=== PATIENT | male | born 1990 | race Caucasian/White ===

== ENCOUNTER 2017-11-11 21:59 | Inpatient (IN) | payer MEDICAID ==
[~2017-11-11] VITALS: Ht 170.2 cm; Wt 130.3 kg
[~2017-11-11 21:59] MED LIST: CYCL-1 PO
[2017-11-11] MEDS ORDERED: normal saline 1000ML IV soln IV ONE (22:30)
[2017-11-11] MEDS ORDERED: pantoprazole IV 80 MG in normal saline 100ml IV soln 100 ML IV ONE (22:30)
[2017-11-11 22:49] LABS: BASOPHILS # (AUTO) 0.1 X10'3 (0-0.2); BASOPHILS % (AUTO) 0.7 % (0-1); EOSINOPHILS # (AUTO) 0.2 X10'3 (0-0.9); EOSINOPHILS % (AUTO) 1.7 % (0-6); HEMATOCRIT 40.5 % (42.0-52.0); LYMPHOCYTES # (AUTO) 3.8 X10'3 (1.1-4.8); LYMPHOCYTES % (AUTO) 32.8 % (21-51); MEAN CORPUSCULAR HEMOGLOBIN 28.6 PG (27.0-31.0); MEAN CORPUSCULAR HGB CONC 34.4 % (33.0-36.5); MEAN PLATELET VOLUME 7.3 FL (7.4-10.4); MONOCYTES # (AUTO) 0.7 X10'3 (0-0.9); MONOCYTES % (AUTO) 6.3 % (2-12); NEUTROPHILS # (AUTO) 6.8 X10'3 (1.8-7.7); NEUTROPHILS % (AUTO) 58.5 % (42-75); PLATELET COUNT 370 X10'3 (140-440); RED BLOOD COUNT 4.88 X10'6 (4.70-6.10); RED CELL DISTRIBUTION WIDTH 13.1 % (11.5-14.5); WHITE BLOOD COUNT 11.6 X10'3 (4.5-11.0)
[2017-11-11] MEDS ORDERED: PANTOPRAZOLE IV ONE (22:50)
[2017-11-11] MEDS ORDERED: [UNRECOGNIZED DRUG - OTHER] IV ONE (22:50)
[2017-11-11 22:58] LABS: PARTIAL THROMBOPLASTIN TIME 27 SECONDS (22-32); PROTHROMBIN TIME 10.5 SECONDS (9.0-12.0)
[2017-11-11 23:11] LABS: CLARITY,URINE CLEAR (Clear); COLOR,URINE YELLOW (Yellow); GLUCOSE, URINE NEGATIVE (Neg); KETONES,URINE NEGATIVE (Neg); LEUKOCYTE ESTERASE ,URINE NEGATIVE (Neg); NITRITES, URINE NEGATIVE (Neg); OCCULT BLOOD,URINE NEGATIVE (Neg); PROTEIN,URINE NEGATIVE (Neg); UROBILINOGEN,URINE 0.2 E.U/dL (0.2-1.0)
[2017-11-11 23:13] LABS: UA COLLECTION TYPE URINAL
[2017-11-11 23:14] LABS: ALANINE AMINOTRANSFERASE 50 U/L (12-78); ALBUMIN 3.9 G/DL (3.4-5.0); ALBUMIN/GLOBULIN RATIO 1.1 (1.1-1.5); ALKALINE PHOSPHATASE 65 IU/L (46-116); ANION GAP 10 (8-16); ASPARTATE AMINO TRANSFERASE 26 U/L (10-37); BILIRUBIN,TOTAL 0.4 MG/DL (0.1-1.0); BLOOD UREA NITROGEN 13 MG/DL (7-18); BUN/CREATININE RATIO 15.1 (5.4-32.0); CALCIUM 9.2 MG/DL (8.5-10.1); CHLORIDE 104 MMOL/L (99-107); CREATININE 0.86 MG/DL (0.60-1.10); GLUCOSE 105 MG/DL (70-104); POTASSIUM 3.9 MMOL/L (3.5-5.1); SODIUM 142 MMOL/L (135-145); TOTAL CARBON DIOXIDE 28.4 MMOL/L (24-32); TOTAL PROTEIN 7.5 G/DL (6.4-8.2); eGFR > 90 ML/MIN
[2017-11-11] MEDS ORDERED: magnesium hydroxide 30ml (MOM) UD suspension PO PRN (23:50)
[2017-11-11] MEDS ORDERED: potassium Cl 20 mEq SR tablet PO PRN ×2 (23:50)
[2017-11-11] MEDS ORDERED: HYDROmorphone 1 mg/ml syringe IV PRN ×2 (23:50)
[2017-11-11] MEDS ORDERED: magnesium Cl slow-release 64mg tablet PO PRN (23:50)
[2017-11-11] MEDS ORDERED: acetaminophen 325mg tablet PO PRN (23:50)
[2017-11-11] MEDS ORDERED: mag hydrox/Alum hydrox/simeth 30ml oral suspension PO PRN (23:50)
[2017-11-11] MEDS ORDERED: magnesium 2GM in 50ml NS 50 ML IV PRN (23:50)
[2017-11-11] MEDS ORDERED: potassium Cl 40MEQ/NS 500ml 500 ML IV PRN ×2 (23:50)
[2017-11-11] MEDS ORDERED: magnesium 4gm in 100ml NS 100 ML IV PRN (23:50)
[2017-11-12] VITALS (14 sets, daily range): BP systolic 116–148; BP diastolic 62–89
[2017-11-12] MEDS ORDERED: HYDROmorphone inj. 0.5 MG/0.5 ML DISP.SYRIN ONE ×2 (00:06→15:36)
[2017-11-12] MEDS: ondansetron/PF 4mg/2ml inj IV PRN ×3 (00:09→23:22)
[2017-11-12] MEDS: pantoprazole 40MG/NS 100ML BAG 100 ML IV SCH ×5 (00:17→20:56)
[2017-11-12] MEDS: normal saline 1000ml 1,000 ML IV SCH ×4 (00:17→22:57)
[2017-11-12 03:42] LABS: BASOPHILS % (AUTO) 0.3 % (0-1); EOSINOPHILS # (AUTO) 0.3 X10'3 (0-0.9); EOSINOPHILS % (AUTO) 2.5 % (0-6); HEMATOCRIT 36.2 % (42.0-52.0); HEMOGLOBIN 12.6 g/dl (14.0-17.9); LYMPHOCYTES # (AUTO) 4.5 X10'3 (1.1-4.8); LYMPHOCYTES % (AUTO) 39.2 % (21-51); MEAN CORPUSCULAR HGB CONC 34.7 % (33.0-36.5); MEAN CORPUSCULAR VOLUME 83.6 FL (78-98); MEAN PLATELET VOLUME 7.3 FL (7.4-10.4); MONOCYTES # (AUTO) 0.8 X10'3 (0-0.9); MONOCYTES % (AUTO) 7.3 % (2-12); NEUTROPHILS # (AUTO) 5.8 X10'3 (1.8-7.7); NEUTROPHILS % (AUTO) 50.7 % (42-75); PLATELET COUNT 329 X10'3 (140-440); RED BLOOD COUNT 4.32 X10'6 (4.70-6.10); RED CELL DISTRIBUTION WIDTH 13.5 % (11.5-14.5); WHITE BLOOD COUNT 11.4 X10'3 (4.5-11.0)
[2017-11-12 04:00] LABS: ALANINE AMINOTRANSFERASE 42 U/L (12-78); ALBUMIN 3.3 G/DL (3.4-5.0); ALBUMIN/GLOBULIN RATIO 1.1 (1.1-1.5); ALKALINE PHOSPHATASE 56 IU/L (46-116); ANION GAP 8 (8-16); ASPARTATE AMINO TRANSFERASE 21 U/L (10-37); BILIRUBIN,TOTAL 0.4 MG/DL (0.1-1.0); BLOOD UREA NITROGEN 12 MG/DL (7-18); CALCIUM 8.5 MG/DL (8.5-10.1); CHLORIDE 108 MMOL/L (99-107); CREATININE 0.86 MG/DL (0.60-1.10); GLUCOSE 113 MG/DL (70-104); MAGNESIUM 1.7 MG/DL (1.5-2.4); POTASSIUM 4.1 MMOL/L (3.5-5.1); SODIUM 143 MMOL/L (135-145); TOTAL CARBON DIOXIDE 27.1 MMOL/L (24-32); TOTAL PROTEIN 6.4 G/DL (6.4-8.2); eGFR > 90 ML/MIN
[2017-11-12 07:15] LABS: OCCULT BLOOD STOOL POSITIVE (Neg)
[2017-11-12] MEDS: K and/or MAG REPLACEMENT MC SCH (08:00)
[2017-11-12] MEDS ORDERED: normal saline 1000ml 1,000 ML IV SCH (13:11)
[2017-11-12] MEDS ORDERED: fentaNYL/PF 50MCG/1 ML 2ML syringe IV PRN (13:15)
[2017-11-12] MEDS ORDERED: MIDAZolam 5mg/ml 2ml vial IV PRN (13:15)
[2017-11-12] MEDS ORDERED: LIDOcaine Viscous 15ml cup PO ONE (13:15)
[2017-11-12] MEDS ORDERED: MIDAZolam 5mg/ml 2ml vial ONE (13:54)
[2017-11-12] MEDS ORDERED: LIDOcaine Viscous 15ml cup ONE (13:54)
[2017-11-12] MEDS ORDERED: fentaNYL/PF 50MCG/1 ML 2ML syringe ONE (13:54)
[2017-11-12] MEDS ORDERED: ondansetron/PF 4mg/2ml inj ONE (14:22)
[2017-11-12] MEDS ORDERED: PEG 3350/Na sulf,bicarb,Cl/KCl oral sol 4 liter bottle PO ONE (21:00)
[2017-11-13] VITALS (14 sets, daily range): BP systolic 118–144; BP diastolic 58–86
[2017-11-13] MEDS: pantoprazole 40MG/NS 100ML BAG 100 ML IV SCH ×2 (01:24→06:26)
[2017-11-13] MEDS: K and/or MAG REPLACEMENT MC SCH (06:29)
[2017-11-13 07:00] LABS: BASOPHILS % (AUTO) 0.4 % (0-1); EOSINOPHILS # (AUTO) 0.3 X10'3 (0-0.9); EOSINOPHILS % (AUTO) 2.5 % (0-6); HEMATOCRIT 35.9 % (42.0-52.0); HEMOGLOBIN 12.6 g/dl (14.0-17.9); LYMPHOCYTES # (AUTO) 3.7 X10'3 (1.1-4.8); LYMPHOCYTES % (AUTO) 33.3 % (21-51); MEAN CORPUSCULAR HEMOGLOBIN 29.1 PG (27.0-31.0); MEAN CORPUSCULAR HGB CONC 34.9 % (33.0-36.5); MEAN CORPUSCULAR VOLUME 83.5 FL (78-98); MEAN PLATELET VOLUME 7.4 FL (7.4-10.4); MONOCYTES # (AUTO) 0.7 X10'3 (0-0.9); MONOCYTES % (AUTO) 6.5 % (2-12); NEUTROPHILS # (AUTO) 6.3 X10'3 (1.8-7.7); NEUTROPHILS % (AUTO) 57.3 % (42-75); PLATELET COUNT 324 X10'3 (140-440); RED BLOOD COUNT 4.31 X10'6 (4.70-6.10); RED CELL DISTRIBUTION WIDTH 13.4 % (11.5-14.5)
[2017-11-13 07:11] LABS: ALANINE AMINOTRANSFERASE 44 U/L (12-78); ALBUMIN 3.4 G/DL (3.4-5.0); ALBUMIN/GLOBULIN RATIO 1.1 (1.1-1.5); ALKALINE PHOSPHATASE 55 IU/L (46-116); ANION GAP 8 (8-16); ASPARTATE AMINO TRANSFERASE 24 U/L (10-37); BILIRUBIN,TOTAL 0.7 MG/DL (0.1-1.0); BLOOD UREA NITROGEN 8 MG/DL (7-18); BUN/CREATININE RATIO 9.2 (5.4-32.0); CALCIUM 8.6 MG/DL (8.5-10.1); CHLORIDE 107 MMOL/L (99-107); CREATININE 0.87 MG/DL (0.60-1.10); GLUCOSE 93 MG/DL (70-104); MAGNESIUM 1.9 MG/DL (1.5-2.4); POTASSIUM 3.9 MMOL/L (3.5-5.1); SODIUM 143 MMOL/L (135-145); TOTAL CARBON DIOXIDE 28.4 MMOL/L (24-32); TOTAL PROTEIN 6.4 G/DL (6.4-8.2); eGFR > 90 ML/MIN
[2017-11-13] MEDS ORDERED: fentaNYL/PF 50MCG/1 ML 2ML syringe ONE (07:35)
[2017-11-13] MEDS ORDERED: MIDAZolam 5mg/ml 2ml vial ONE (07:36)
[2017-11-13] MEDS ORDERED: midazolam 2 mg/2 ml injection ONE ×2 (07:38→07:46)
[2017-11-13] MEDS ORDERED: normal saline 1000ml 1,000 ML IV SCH (09:31)
[2017-11-13] MEDS ORDERED: fentaNYL/PF 50MCG/1 ML 2ML syringe IV PRN (09:35)
[2017-11-13] MEDS ORDERED: MIDAZolam 5mg/5ml vial IV PRN (09:35)
[2017-11-13] MEDS ORDERED: simethicone 40mg/0.6ml oral drops 30ml MC ONE (09:35)
[2017-11-13] MEDS ORDERED: HYDR25SU32 RC (13:11)
== END 2017-11-13 14:05 | disposition home or self-care (01) | DRG 254 ==
LOC: ER 22:00 → ED HOLD 23:50 → MED 3N 11-12 00:42
PROVIDERS: ADMIT Internal Medicine; ATTEND Internal Medicine
PROC: 0DB78ZX Excision of Stomach, Pylorus, Via Natural or Artificial Opening Endoscopic, Diagnostic (ICD-10-PCS; principal; 2017-11-12)
PROC: 0DJD8ZZ Inspection of Lower Intestinal Tract, Via Natural or Artificial Opening Endoscopic (ICD-10-PCS; 2017-11-13)
PROC: 3E0G8GC Introduction of Other Therapeutic Substance into Upper GI, Via Natural or Artificial Opening Endoscopic (ICD-10-PCS; 2017-11-13)
DX: K64.4 Residual hemorrhoidal skin tags (principal); D62 Acute posthemorrhagic anemia; D72.829 Elevated white blood cell count, unspecified; K21.9 Gastro-esophageal reflux disease without esophagitis; M62.838 Other muscle spasm; K44.9 Diaphragmatic hernia without obstruction or gangrene; K29.70 Gastritis, unspecified, without bleeding; Z80.7 Family history of other malignant neoplasms of lymphoid, hematopoietic and related tissues; Z82.49 Family history of ischemic heart disease and other diseases of the circulatory system
CPT/HCPCS: 36415; 43239; 45378; 71045; 80053; 81003; 82272; 83735; 85025; 85027; 85610; 85730; 86885; 86900; 86901; 87070; 93005; 96365; 99285; A4620; A6253; C9113; G0500; J1170; J2250; J2405; J3010; J7030

== ENCOUNTER 2018-03-23 06:30 | Emergency (ER) | payer MEDICAID ==
[~2018-03-23] VITALS: Ht 170.2 cm; Wt 122.0 kg
[~2018-03-23 06:30] MED LIST changes: -CYCL-1 PO; +HYDR25SU32 RC
[2018-03-23 06:31] VITALS: BP 145/92
[2018-03-23] MEDS ORDERED: MUPI22OI30 TP (06:59)
[2018-03-23] MEDS ORDERED: triamcinolone acetonide 40mg/ml inj IM ONE (07:00)
== END 2018-03-23 07:30 | disposition home or self-care (01) ==
LOC: ER 06:30
DX: S50.862A Insect bite (nonvenomous) of left forearm, initial encounter (principal); S50.861A Insect bite (nonvenomous) of right forearm, initial encounter; S30.861A Insect bite (nonvenomous) of abdominal wall, initial encounter; S20.469A Insect bite (nonvenomous) of unspecified back wall of thorax, initial encounter; S70.362A Insect bite (nonvenomous), left thigh, initial encounter; Z98.890 Other specified postprocedural states; Z79.899 Other long term (current) drug therapy; W57.XXXA Bitten or stung by nonvenomous insect and other nonvenomous arthropods, initial encounter; Y93.89 Activity, other specified; Y92.89 Other specified places as the place of occurrence of the external cause; Y99.8 Other external cause status
CPT/HCPCS: 96372; 99283; J3301

== ENCOUNTER 2018-03-28 20:47 | Emergency (ER) | payer MEDICAID ==
[~2018-03-28] VITALS: Ht 170.2 cm; Wt 122.7 kg
[~2018-03-28 20:47] MED LIST changes: +MUPI22OI30 TP
[2018-03-28 21:07] VITALS: BP 135/100
[2018-03-28] MEDS ORDERED: PERM60CR4 TP (21:39)
[2018-03-28] MEDS ORDERED: TRIA15CR61 TOP (21:39)
[2018-03-28] MEDS ORDERED: HYDR25CA PO (21:39)
== END 2018-03-28 21:58 | disposition home or self-care (01) ==
LOC: ER 20:48
DX: T14.8XXA Other injury of unspecified body region, initial encounter (principal); Z98.890 Other specified postprocedural states; Z79.899 Other long term (current) drug therapy; W57.XXXA Bitten or stung by nonvenomous insect and other nonvenomous arthropods, initial encounter; Y93.89 Activity, other specified; Y92.89 Other specified places as the place of occurrence of the external cause; Y99.8 Other external cause status
CPT/HCPCS: 99283

== ENCOUNTER 2018-11-14 01:31 | Emergency (ER) | payer MEDICAID, OTHER ==
[~2018-11-14] VITALS: Ht 170.2 cm; Wt 129.0 kg
[~2018-11-14 01:31] MED LIST changes: +HYDR25CA PO; -MUPI22OI30 TP; +PERM60CR4 TP
[2018-11-14 01:33] VITALS: BP 143/84
[2018-11-14] MEDS ORDERED: HYDR-4384 PO (01:57)
[2018-11-14] MEDS ORDERED: HYDROcodone/acetaminophen 5mg/325mg tablet PO ONE (02:00)
== END 2018-11-14 02:25 | disposition home or self-care (01) ==
LOC: ER 01:32
DX: H16.133 Photokeratitis, bilateral (principal)
CPT/HCPCS: 99283